=== PATIENT | male | born 1955 | race Hispanic/Latino ===

== ENCOUNTER 2020-10-07 10:02 | Inpatient (IN) | payer MEDICARE ==
[2020-10-07] MEDS ORDERED: UDCUP PO PRN (13:00)
[2020-10-07] MEDS ORDERED: ACETAMINOPHEN 650 MG/20.3 ML PO PRN (13:00)
[2020-10-07] MEDS ORDERED: Ventolin HFA Inhaler 60 PUFF INHALER INH PRN (13:00)
[2020-10-07] MEDS: Ventolin HFA Inhaler 60 PUFF INHALER INH SCH ×3 (14:44→22:06)
[2020-10-07] MEDS: Arformoterol 15 MCG/2 ML NEB NEB SCH (18:21)
[2020-10-07] MEDS: Budesonide 0.5 MG/2 ML NEB NEB SCH (18:21)
[2020-10-07] MEDS ORDERED: Dextrose 50% Abboject 50 ML SYRINGE IVP PRN (19:15)
[2020-10-07] MEDS ORDERED: Dextrose 5% in Water 1,000 ML IV PRN (19:15)
[2020-10-07] MEDS ORDERED: HumaLOG 300 UNITS/3 ML VIAL SC PRN (19:15)
[2020-10-07] MEDS: Cholecalciferol 1,000 UNITS (25 MCG) TAB PO SCH (22:05)
[2020-10-07] MEDS: Apixaban 2.5 MG TAB PO SCH (22:06)
[2020-10-08] MEDS: Ventolin HFA Inhaler 60 PUFF INHALER INH SCH ×6 (03:10→22:27)
[2020-10-08 05:08] LABS: #Basophils 0.2 thou/uL (0.0-0.2); #Eosinphils 0.2 thou/uL (0.0-0.7); #Monocytes 0.8 thou/uL (0.11-0.59); #Neutrophils 12.5 thou/uL (1.40-6.50); %Basophils 1.1 % (0.0-1.0); %Eosinophils 1.5 % (0.0-10.0); %Lymphocytes 12.9 % (21.0-51.0); %Monocytes 5.3 % (0.0-10.0); %Neutrophils 79.3 % (42.0-75.0); Hemoglobin 13.2 g/dL (14.0-18.0); Mean Corpuscular HGB CONC 32.1 g/dL (32.0-36.0); Mean Corpuscular Volume 96.6 fL (78.0-98.0); Mean Platelet Volume 8.5 fL (7.4-10.4); Platelet Count 370 thou/uL (130-400); RBC Distribution Width 13.8 % (11.5-14.5); Red Blood Cell (RBC) Count 4.27 mill/uL (4.70-6.10); White Blood Cell (WBC) Count 15.8 thou/uL (4.8-10.8)
[2020-10-08 05:21] LABS: Anion Gap 18 mmol/L (10-20); BUN (Urea Nitrogen) 42 mg/dL (8.4-25.7); Calc. Creatinine Clearance 106 mL/min (70-130); Calcium 8.8 mg/dL (7.8-10.44); Carbon Dioxide 26 mmol/L (23-31); Chloride 97 mmol/L (98-107); Glucose 167 mg/dL (80-115); Potassium 4.2 mmol/L (3.5-5.1); Sodium 137 mmol/L (136-145)
[2020-10-08] MEDS: Budesonide 0.5 MG/2 ML NEB NEB SCH ×2 (05:30→18:43)
[2020-10-08] MEDS: Arformoterol 15 MCG/2 ML NEB NEB SCH ×2 (05:30→18:43)
[2020-10-08] MEDS: HumaLOG 300 UNITS/3 ML VIAL SC PRN ×2 (05:53→16:56)
[2020-10-08] MEDS: Dexamethasone 1 MG TAB PO SCH (09:59)
[2020-10-08] MEDS: Saccharomyces boulardii 250 MG CAP PO SCH (09:59)
[2020-10-08] MEDS: Cyanocobalamin (Vitamin B-12) 1,000 MCG TAB PO SCH (10:00)
[2020-10-08] MEDS: Zinc Sulfate 220 MG CAP PO SCH (10:00)
[2020-10-08] MEDS: Ascorbic Acid 500 mg Chewable Tablet PO SCH (10:00)
[2020-10-08] MEDS: Furosemide 40 MG TAB PO SCH (10:00)
[2020-10-08] MEDS: Apixaban 2.5 MG TAB PO SCH ×2 (10:00→20:45)
[2020-10-08] MEDS: Folic Acid 1 MG TAB PO SCH (10:01)
--- NOTE | 2020-10-08 14:01 | PRG ---
DATE OF SERVICE: 10/08/2020 SUBJECTIVE: Mr. Golden is up in bed and is trying to eat some food. Speech therapy evaluation is pending. He is also tolerating PEG tube feeds. His spouse is in the room. No questions or concerns. OBJECTIVE: VITAL SIGNS: He is afebrile. Heart rate is 91, respirations 18, oxygen saturation 97% on nasal cannula, blood pressure 124/75. CARDIOVASCULAR SYSTEM: S1-S2 plus. RESPIRATORY SYSTEM: Normal vesicular breath sounds with occasional rhonchi. ABDOMEN: Soft, nontender. Bowel sounds heard in all quadrants. EXTREMITIES: Without cyanosis or clubbing. PEG tube site is healthy. CENTRAL NERVOUS SYSTEM: Generalized weakness. LABORATORY VALUES: Show a white count of 15.8, H and H are 13.2 and 41.2. Sodium 137, potassium 4.2, BUN and creatinine are 42 . Blood sugars are 151, 123, 129. IMPRESSION: 1. Diabetes mellitus type 2. 2. Hypertension. 3. Recent COVID-19 infection. 4. Acute hypoxemic respiratory failure. 5. Anorexia, requiring PEG tube placement. 6. 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 7. History of peripheral vascular disease documented in old records. PLAN: 1. Continue current medication. 2. Nutritional support. 3. PT/OT and ST eval. 4. DVT prophylaxis with Eliquis. 5. Decubitus precaution. 6. Stress ulcer prophylaxis. 7. He is supposed to be under Dr. Polanco and Dr. Polanco will assume care at 9 p.m. [facility]. Job ID: [id number]
[2020-10-08] MEDS: Cholecalciferol 1,000 UNITS (25 MCG) TAB PO SCH (20:45)
[2020-10-09] MEDS: Ventolin HFA Inhaler 60 PUFF INHALER INH SCH ×6 (02:22→23:14)
--- NOTE | 2020-10-09 05:18 | HP ---
CHIEF COMPLAINTS: Recent COVID pneumonia and hypoxemic respiratory failure for therapy. BRIEF HISTORY: This is a pleasant 65-year-old male, who was admitted to the hospital on August 31 with hypoxemia and hypertension. He was diagnosed with respiratory failure and sepsis secondary to COVID-[address] scan of his chest was consistent with COVID pneumonia. He was started on high-flow oxygen and had to be transitioned to intubation and mechanical ventilation. He received empiric antibiotics, steroids, and remdesivir. He also was noted to have a UTI, which needed to be treated. Because of severe malnutrition and poor p.o. intake, a PEG tube was placed. He is being transferred here for nutritional support as well as therapy. The patient is up in bed and denies any concerns. He is very weak. His spouse is in the room. PAST MEDICAL HISTORY: 1. Diabetes mellitus type 2, recently diagnosed in May. 2. Hypertension. 3. Acute hypoxemic respiratory failure. 4. Recent COVID-19 pneumonia. 5. Recent UTI, which has resolved. 6. Poor p.o. intake, requiring PEG tube placement. 7. Peripheral vascular disease. PAST SURGICAL HISTORY: 1. PEG tube placement. 2. Right knee surgery. MEDICATIONS: He has been transferred here on the following medications; 1. Tylenol 650 p.o. q.4h p.r.n. 2. Ventolin inhaler two puffs q.2 p.r.n. 3. Eliquis 2.5 mg b.i.d. 4. Brovana 15 mcg via nebulizer b.i.d. 5. Vitamin C 1000 mg daily. 6. Pulmicort 0.5 mg nebs b.i.d. 7. Vitamin D3 of 5000 units daily. 8. Vitamin B12 of 1000 mcg daily. 9. Decadron 1.5 mg daily, this is to be tapered by 0.5 mg every 5 days. 10. Folic acid 1 mg daily. 11. Lasix 40 mg daily. 12. Pantoprazole 40 mg daily. 13. Florastor 250 daily. 14. Zinc sulfate 220 daily. ALLERGIES: PENICILLIN AND FOOD, IT IS MUSHROOMS AND BARBECUE SAUCE. FAMILY HISTORY: Positive for diabetes and hypertension. PSYCHOSOCIAL HISTORY: Denies any tobacco, alcohol, or recreational drug abuse. REVIEW OF SYSTEMS: CARDIOVASCULAR SYSTEM: Denies any chest pain. Improving shortness of breath. Denies any PND, orthopnea, or pedal edema. RESPIRATORY SYSTEM: Occasional cough. Denies any expectoration. Denies any hemoptysis or pleuritic-type chest pain. GASTROINTESTINAL SYSTEM: Anorexia is positive. Denies any nausea or vomiting. Denies any hematemesis, melena, or hematochezia. GENITOURINARY SYSTEM: Denies any frequency, urgency, dysuria, or hematuria. CENTRAL NERVOUS SYSTEM: Denies any focal numbness, weakness, or fainting spells. HEENT: Denies any changes with speech, vision, hearing, or swallowing. EXTREMITIES: Occasional joint pain. SKIN: Denies any rash. PHYSICAL EXAMINATION: GENERAL: This is a pleasant 65-year-old male, who is resting in bed and is very frail and weak. He is not in any distress. He responds appropriately to questions. His spouse is in the room. VITAL SIGNS: He is afebrile, heart rate 92, respirations 19, oxygen saturation 99% on 2 L, blood pressure 133/78. HEENT: Normocephalic and atraumatic. Pupils are equally reacting to light and accommodation. No JVD, thyromegaly, cervical adenopathy, or throat exudates. No carotid bruits. CARDIOVASCULAR SYSTEM: S1-S2 plus. Rate and rhythm regular. RESPIRATORY SYSTEM: Normal vesicular breath sounds with occasional rhonchi. Decreased air entry in the bases. ABDOMEN: Soft, nontender. Bowel sounds heard in all quadrants. PEG tube site is healthy. EXTREMITIES: Without cyanosis or clubbing. CENTRAL NERVOUS SYSTEM: Awake and responsive. Cranial nerves 2 through 12 intact. Significant deconditioning. LABORATORY VALUES: Pending. IMPRESSION: 1. Recent COVID-19 infection. 2. Diabetes mellitus type 2. 3. Hypertension. 4. Acute hypoxemic respiratory failure. 5. 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 6. Resolved urinary tract infection. PLAN: 1. Continue discharge medications from previous hospitalization. 2. 1800 calorie heart healthy diet with aspiration precautions. 3. Glucerna tube feed one can every 4 hours starting at 8 p.m. 4. DVT prophylaxis with Eliquis. 5. Decubitus precautions. 6. Stress ulcer prophylaxis. 7. Physical therapy, PT and OT eval and treat. 8. CBC and CMP in the morning. 9. Titrate oxygen as tolerated. 10. Discussed with the patient and spouse in detail. All questions answered. Job ID: [id number]
[2020-10-09] MEDS: Budesonide 0.5 MG/2 ML NEB NEB SCH ×2 (05:43→17:48)
[2020-10-09] MEDS: Arformoterol 15 MCG/2 ML NEB NEB SCH ×2 (05:43→17:47)
[2020-10-09] MEDS: HumaLOG 300 UNITS/3 ML VIAL SC PRN ×2 (05:51→17:13)
[2020-10-09] MEDS: Apixaban 2.5 MG TAB PO SCH ×2 (08:09→20:13)
[2020-10-09] MEDS: Ascorbic Acid 500 mg Chewable Tablet PO SCH (08:09)
[2020-10-09] MEDS: Furosemide 40 MG TAB PO SCH (08:09)
[2020-10-09] MEDS: Cyanocobalamin (Vitamin B-12) 1,000 MCG TAB PO SCH (08:09)
[2020-10-09] MEDS: Folic Acid 1 MG TAB PO SCH (08:10)
[2020-10-09] MEDS: Zinc Sulfate 220 MG CAP PO SCH (08:10)
[2020-10-09] MEDS: Dexamethasone 1 MG TAB PO SCH (08:10)
[2020-10-09] MEDS: Saccharomyces boulardii 250 MG CAP PO SCH (08:10)
[2020-10-09] MEDS ORDERED: Sodium Chloride 0.65% Nasal 44 ML BOT EA NARE PRN (13:01)
--- NOTE | 2020-10-09 13:36 | PRG ---
DATE OF SERVICE: 10/09/2020 SUBJECTIVE: The patient is doing well. He is sitting up in bed. PEG tube is in place with no acute findings. He is tolerating his PEG tube feeds well. He is taking these at night because at [facility], he was having decreased appetite when feedings were given during the day. Nursing staff noticed that he was using Q-Tips to clean out his nose and so that he could breathe better. We will start him on some saline spray q.i.d. p.r.n. for this and encourage him not to use Q-Tips in his nose. OBJECTIVE: VITAL SIGNS: Afebrile. Temperature 96.5, pulse 91, respirations 18, O2 sats 97 on 2 L nasal cannula, blood pressure 116/69. GENERAL: Well-appearing, well-developed, 65-year-old male lying in bed, in no acute distress. RESPIRATIONS: Clear to auscultation bilaterally. No wheezes or rhonchi. CARDIOVASCULAR: Regular rate and rhythm. No murmurs, gallops, or rubs. ABDOMEN: Soft, nontender to palpation. Bowel sounds positive in all 4 quadrants. EXTREMITIES: Generalized weakness. NEURO: Nonfocal exam. LABORATORY DATA: White count of 15.8, hemoglobin 13.2, hematocrit 41.2, platelets 370. The patient's CBG is ranging from 147 to 187. IMPRESSION: 1. Status post COVID infection requiring PT and OT services. 2. Diabetes type 2. 3. Hypertension. 4. Status post acute hypoxemic respiratory failure. 5. Anorexia requiring PEG tube placement, improving. The patient also with significant deconditioning. PLAN: 1. Plan is to start patient with saline nose spray to help clear out his nose and avoid using Q-Tips. 2. Speech therapy consult for swallowing and if he passes this, he can return to ad lobo diet. 3. Continue PEG feedings at night. 4. PT/OT. 5. DVT prophylaxis with Eliquis. 6. Decubitus precautions. 7. Stress ulcer prophylaxis. Job ID: [id number]
[2020-10-09] MEDS: Cholecalciferol 1,000 UNITS (25 MCG) TAB PO SCH (20:13)
[2020-10-10] MEDS: Ventolin HFA Inhaler 60 PUFF INHALER INH SCH ×6 (02:35→23:08)
[2020-10-10] MEDS: Budesonide 0.5 MG/2 ML NEB NEB SCH ×2 (05:48→18:19)
[2020-10-10] MEDS: Arformoterol 15 MCG/2 ML NEB NEB SCH ×2 (05:48→18:18)
[2020-10-10] MEDS: Cyanocobalamin (Vitamin B-12) 1,000 MCG TAB PO SCH (08:18)
[2020-10-10] MEDS: Apixaban 2.5 MG TAB PO SCH ×2 (08:18→20:25)
[2020-10-10] MEDS: Furosemide 40 MG TAB PO SCH (08:18)
[2020-10-10] MEDS: Dexamethasone 1 MG TAB PO SCH (08:18)
[2020-10-10] MEDS: Ascorbic Acid 500 mg Chewable Tablet PO SCH (08:18)
[2020-10-10] MEDS: Zinc Sulfate 220 MG CAP PO SCH (08:19)
[2020-10-10] MEDS: Saccharomyces boulardii 250 MG CAP PO SCH (08:19)
[2020-10-10] MEDS: Folic Acid 1 MG TAB PO SCH (08:19)
[2020-10-10] MEDS: HumaLOG 300 UNITS/3 ML VIAL SC PRN (11:35)
[2020-10-10] MEDS: Cholecalciferol 1,000 UNITS (25 MCG) TAB PO SCH (20:25)
[2020-10-11] MEDS: Ventolin HFA Inhaler 60 PUFF INHALER INH SCH ×6 (03:28→23:17)
[2020-10-11 05:41] LABS: #Basophils 0.2 thou/uL (0.0-0.2); #Eosinphils 0.2 thou/uL (0.0-0.7); #Lymphocytes 2.4 thou/uL (1.20-3.40); #Monocytes 0.8 thou/uL (0.11-0.59); #Neutrophils 11.8 thou/uL (1.40-6.50); %Basophils 1.2 % (0.0-1.0); %Eosinophils 1.4 % (0.0-10.0); %Lymphocytes 15.5 % (21.0-51.0); %Neutrophils 76.9 % (42.0-75.0); Hemoglobin 13.1 g/dL (14.0-18.0); Mean Corpuscular HGB CONC 31.8 g/dL (32.0-36.0); Mean Corpuscular Hemoglobin 31.2 pg (27.0-31.0); Mean Corpuscular Volume 97.9 fL (78.0-98.0); Mean Platelet Volume 8.5 fL (7.4-10.4); Platelet Count 341 thou/uL (130-400); RBC Distribution Width 14.1 % (11.5-14.5); Red Blood Cell (RBC) Count 4.22 mill/uL (4.70-6.10); White Blood Cell (WBC) Count 15.3 thou/uL (4.8-10.8)
[2020-10-11 05:57] LABS: ALT (SGPT) 38 U/L (8-55); AST (SGOT) 29 U/L (5-34); Albumin 3.2 g/dL (3.4-4.8); Alkaline Phosphatase 174 U/L (40-110); Anion Gap 17 mmol/L (10-20); BUN (Urea Nitrogen) 39 mg/dL (8.4-25.7); Calc. Creatinine Clearance 105 mL/min (70-130); Calcium 9.1 mg/dL (7.8-10.44); Carbon Dioxide 27 mmol/L (23-31); Chloride 99 mmol/L (98-107); Globulin 4.4 g/dL (2.4-3.5); Glucose 173 mg/dL (80-115); Potassium 4.7 mmol/L (3.5-5.1); Protein, Total 7.6 g/dL (5.8-8.1); Sodium 138 mmol/L (136-145)
[2020-10-11 06:07] LABS: Bilirubin, Total 0.3 mg/dL (0.2-1.2)
[2020-10-11] MEDS: Arformoterol 15 MCG/2 ML NEB NEB SCH ×2 (06:14→18:43)
[2020-10-11] MEDS: Budesonide 0.5 MG/2 ML NEB NEB SCH ×2 (06:17→18:42)
[2020-10-11] MEDS: Apixaban 2.5 MG TAB PO SCH ×2 (08:08→20:07)
[2020-10-11] MEDS: Folic Acid 1 MG TAB PO SCH (08:08)
[2020-10-11] MEDS: Cyanocobalamin (Vitamin B-12) 1,000 MCG TAB PO SCH (08:08)
[2020-10-11] MEDS: Zinc Sulfate 220 MG CAP PO SCH (08:08)
[2020-10-11] MEDS: Dexamethasone 1 MG TAB PO SCH (08:08)
[2020-10-11] MEDS: Saccharomyces boulardii 250 MG CAP PO SCH (08:08)
[2020-10-11] MEDS: Ascorbic Acid 500 mg Chewable Tablet PO SCH (08:08)
[2020-10-11] MEDS: Furosemide 40 MG TAB PO SCH (08:09)
[2020-10-11] MEDS: HumaLOG 300 UNITS/3 ML VIAL SC PRN (17:35)
[2020-10-11] MEDS: Cholecalciferol 1,000 UNITS (25 MCG) TAB PO SCH (20:06)
[2020-10-11] MEDS: Sulfameth/Trimethoprim DS 800-160mg TAB PO SCH (20:07)
[2020-10-12] MEDS: Ventolin HFA Inhaler 60 PUFF INHALER INH SCH ×6 (02:52→22:23)
[2020-10-12] MEDS: Arformoterol 15 MCG/2 ML NEB NEB SCH ×2 (05:29→17:59)
[2020-10-12] MEDS: Budesonide 0.5 MG/2 ML NEB NEB SCH ×2 (05:29→17:59)
[2020-10-12] MEDS: Zinc Sulfate 220 MG CAP PO SCH (09:18)
[2020-10-12] MEDS: Saccharomyces boulardii 250 MG CAP PO SCH (09:19)
[2020-10-12] MEDS: Cyanocobalamin (Vitamin B-12) 1,000 MCG TAB PO SCH (09:20)
[2020-10-12] MEDS: Ascorbic Acid 500 mg Chewable Tablet PO SCH (09:20)
[2020-10-12] MEDS: Folic Acid 1 MG TAB PO SCH (09:20)
[2020-10-12] MEDS: Dexamethasone 1 MG TAB PO SCH (09:20)
[2020-10-12] MEDS: Sulfameth/Trimethoprim DS 800-160mg TAB PO SCH ×2 (09:20→20:19)
[2020-10-12] MEDS: Apixaban 2.5 MG TAB PO SCH ×2 (09:21→20:19)
[2020-10-12] MEDS: Furosemide 40 MG TAB PO SCH (09:21)
[2020-10-12] MEDS: HumaLOG 300 UNITS/3 ML VIAL SC PRN ×2 (12:36→17:20)
[2020-10-12] MEDS: Cholecalciferol 1,000 UNITS (25 MCG) TAB PO SCH (20:19)
[2020-10-13] MEDS: Ventolin HFA Inhaler 60 PUFF INHALER INH SCH ×6 (03:11→21:41)
[2020-10-13] MEDS: Arformoterol 15 MCG/2 ML NEB NEB SCH ×2 (06:04→18:09)
[2020-10-13] MEDS: Budesonide 0.5 MG/2 ML NEB NEB SCH ×2 (06:04→18:10)
[2020-10-13] MEDS: Furosemide 40 MG TAB PO SCH (08:34)
[2020-10-13] MEDS: Cyanocobalamin (Vitamin B-12) 1,000 MCG TAB PO SCH (08:34)
[2020-10-13] MEDS: Ascorbic Acid 500 mg Chewable Tablet PO SCH (08:34)
[2020-10-13] MEDS: Saccharomyces boulardii 250 MG CAP PO SCH (08:34)
[2020-10-13] MEDS: Zinc Sulfate 220 MG CAP PO SCH (08:34)
[2020-10-13] MEDS: Sulfameth/Trimethoprim DS 800-160mg TAB PO SCH ×2 (08:35→21:41)
[2020-10-13] MEDS: Folic Acid 1 MG TAB PO SCH (08:35)
[2020-10-13] MEDS: Dexamethasone 1 MG TAB PO SCH (08:35)
[2020-10-13] MEDS: Apixaban 2.5 MG TAB PO SCH ×2 (08:35→21:41)
[2020-10-13] MEDS ORDERED: Dexamethasone 1 MG TAB PO SCH (09:00)
[2020-10-13] MEDS: HumaLOG 300 UNITS/3 ML VIAL SC PRN (13:13)
--- NOTE | 2020-10-13 18:12 | PRG ---
DATE OF SERVICE: 10/12/2020 SUBJECTIVE: The patient is a 65-year-old male, here for PT and OT services as well as management of his type 2. The patient is doing well overall. However, he is reporting some vertigo with PT. The patient has advanced well with his diet and is using his PEG tube overnight only. We will continue to monitor his feeds and progress as tolerated along with consult speech therapy. REVIEW OF SYSTEMS: Reports dizziness when standing with vertigo symptoms when he stands up with physical therapy. Otherwise, denies any fevers, chills, cough, congestion, shortness of breath, palpitations, chest pain, nausea, vomiting, diarrhea. OBJECTIVE: VITAL SIGNS: Temperature 96.8, pulse 95, respirations 18, O2 sats 92% to 97% on room air, blood pressure 128/65. GENERAL: Well-appearing well-developed 65-year-old male, lying in bed, no acute distress. HEART: Regular rate and rhythm. No murmurs, gallops, rubs. RESPIRATIONS: Clear to auscultation bilaterally. No wheezes or rhonchi. ABDOMEN: Soft, nontender to palpation. Bowel sounds positive in all four quadrants. PEG tube in place, clean, dry, and intact. EXTREMITIES: Generalized weakness, improving. ASSESSMENT: 1. Status post COVID infection requiring PT and OT services. 2. Type 2 diabetes. 3. Hypertension. 4. Status post acute hypoxemic respiratory failure, no acute issues in this hospitalization. 5. Anorexia requiring PEG tube placement, improving. 6. Weakness and deconditioning. PLAN: 1. Continue patient's saline nose spray. 2. Continue to advance diet per Speech Therapy recommendations. 3. Continue PEG feeds at night. 4. Continue PT and OT services. 5. DVT prophylaxis, on Eliquis. 6. Decubitus precautions. 7. Stress ulcer prophylaxis. Job ID: [id number] [facility]
[2020-10-13] MEDS: Cholecalciferol 1,000 UNITS (25 MCG) TAB PO SCH (21:40)
[2020-10-14] MEDS: Ventolin HFA Inhaler 60 PUFF INHALER INH SCH ×6 (02:51→21:49)
[2020-10-14] MEDS: Budesonide 0.5 MG/2 ML NEB NEB SCH ×2 (05:41→18:19)
[2020-10-14] MEDS: Arformoterol 15 MCG/2 ML NEB NEB SCH ×2 (05:43→18:18)
[2020-10-14] MEDS: Meclizine HCl 25 MG TAB PO PRN (08:17)
[2020-10-14] MEDS: Cyanocobalamin (Vitamin B-12) 1,000 MCG TAB PO SCH (08:18)
[2020-10-14] MEDS: Ascorbic Acid 500 mg Chewable Tablet PO SCH (08:18)
[2020-10-14] MEDS: Apixaban 2.5 MG TAB PO SCH ×2 (08:18→20:50)
[2020-10-14] MEDS: Furosemide 40 MG TAB PO SCH (08:18)
[2020-10-14] MEDS: Dexamethasone 1 MG TAB PO SCH (08:19)
[2020-10-14] MEDS: Zinc Sulfate 220 MG CAP PO SCH (08:20)
[2020-10-14] MEDS: Saccharomyces boulardii 250 MG CAP PO SCH (08:20)
[2020-10-14] MEDS: Sulfameth/Trimethoprim DS 800-160mg TAB PO SCH ×2 (08:20→20:51)
[2020-10-14] MEDS: Folic Acid 1 MG TAB PO SCH (08:20)
[2020-10-14] MEDS: Cholecalciferol 1,000 UNITS (25 MCG) TAB PO SCH (20:50)
[2020-10-15] MEDS: Ventolin HFA Inhaler 60 PUFF INHALER INH SCH ×6 (02:24→21:01)
[2020-10-15] MEDS: Budesonide 0.5 MG/2 ML NEB NEB SCH ×2 (05:36→18:12)
[2020-10-15] MEDS: Arformoterol 15 MCG/2 ML NEB NEB SCH ×2 (05:37→18:12)
--- NOTE | 2020-10-15 07:12 | PRG ---
DATE OF SERVICE: 10/14/[address] Boaz Polanco. SUBJECTIVE: The patient is a 65-year-old male, status post COVID infection with severe critical illness myopathy. He is improving daily and working with therapy with some problems with dizziness, improving recently. He is eating better and has been advanced with speech therapy, but is still requiring PEG tube overnight because of decreased intake. OBJECTIVE: GENERAL: The patient is alert, in no distress. Ready for more therapy. Eating his supper. LUNGS: Clear. CARDIAC: Showed regular rhythm. ABDOMEN: Soft and nontender. VITAL SIGNS: Show temperature 97.4, pulse 105, respirations 20, O2 sats 94% on room air, and blood pressure 140/79. LABORATORY DATA: Accu-Cheks 128 to 137. ASSESSMENT: 1. Resolved COVID-19 pneumonia. 2. Improving critical illness myopathy. 3. Poor oral intake, slowly improving with supplemental feeding at night, but tolerating diet. 4. Hypertension, controlled to goal. 5. Type 2 diabetes, controlled to goal. PLAN: 1. Continue PT/OT. 2. Continue to stress oral intake and monitor with speech. 3. Continue PEG feeding at night. 4. Continue Accu-Cheks to monitor and titrate and control diabetes. 5. Review labs and therapy notes. Job ID: [id number]
[2020-10-15] MEDS: Ascorbic Acid 500 mg Chewable Tablet PO SCH (09:21)
[2020-10-15] MEDS: Dexamethasone 1 MG TAB PO SCH (09:21)
[2020-10-15] MEDS: Cyanocobalamin (Vitamin B-12) 1,000 MCG TAB PO SCH (09:21)
[2020-10-15] MEDS: Folic Acid 1 MG TAB PO SCH (09:21)
[2020-10-15] MEDS: Apixaban 2.5 MG TAB PO SCH ×2 (09:21→21:01)
[2020-10-15] MEDS: Zinc Sulfate 220 MG CAP PO SCH (09:22)
[2020-10-15] MEDS: Saccharomyces boulardii 250 MG CAP PO SCH (09:22)
[2020-10-15] MEDS: Sulfameth/Trimethoprim DS 800-160mg TAB PO SCH ×2 (09:22→21:01)
[2020-10-15] MEDS: Meclizine HCl 25 MG TAB PO PRN (09:25)
[2020-10-15] MEDS: Cholecalciferol 1,000 UNITS (25 MCG) TAB PO SCH (21:01)
[2020-10-16] MEDS: Ventolin HFA Inhaler 60 PUFF INHALER INH SCH ×6 (02:25→21:17)
[2020-10-16] MEDS: Budesonide 0.5 MG/2 ML NEB NEB SCH ×2 (06:10→17:35)
[2020-10-16] MEDS: Arformoterol 15 MCG/2 ML NEB NEB SCH ×2 (06:12→17:36)
[2020-10-16] MEDS: Folic Acid 1 MG TAB PO SCH (09:52)
[2020-10-16] MEDS: Zinc Sulfate 220 MG CAP PO SCH (09:53)
[2020-10-16] MEDS: Dexamethasone 1 MG TAB PO SCH (09:53)
[2020-10-16] MEDS: Cyanocobalamin (Vitamin B-12) 1,000 MCG TAB PO SCH (09:53)
[2020-10-16] MEDS: Sulfameth/Trimethoprim DS 800-160mg TAB PO SCH ×2 (09:53→21:16)
[2020-10-16] MEDS: Ascorbic Acid 500 mg Chewable Tablet PO SCH (09:53)
[2020-10-16] MEDS: Saccharomyces boulardii 250 MG CAP PO SCH (09:53)
[2020-10-16] MEDS: Apixaban 2.5 MG TAB PO SCH ×2 (09:53→21:16)
--- NOTE | 2020-10-16 13:28 | PRG ---
DATE OF SERVICE: 10/16/2020 SUBJECTIVE: The patient is a 65-year-old male here for PT and OT services following COVID infection. The patient still has PEG tube in place, but he is eating and drinking well. He is drinking Januvia for supplementation as well. Continue to monitor PEG tube. REVIEW OF SYSTEMS: Denies any fever, chills, cough, congestion, nausea, vomiting, or diarrhea. The patient states that his dizziness has improved. OBJECTIVE: VITAL SIGNS: Temperature 96.5, pulse 86 to 90, respirations 18 to 20, O2 saturations 96% to 97% on room air, blood pressure 123/65 to 139/90. GENERAL: Well-appearing 65-year-old male, lying in bed, in no acute distress. RESPIRATIONS: Clear to auscultation bilaterally. CARDIOVASCULAR: Regular rate and rhythm. No murmurs, gallops, or rubs. ABDOMEN: Soft, nontender to palpation. Bowel sounds positive in all four quadrants. A PEG tube in place, clean, dry, and intact. There is a sacral pressure ulcer seen that has some minimal tracking. Wound Care is following this. ASSESSMENT: 1. Status post COVID infection requiring PT and OT services. 2. Type 2 diabetes. 3. Hypertension. 4. Status post acute hypoxemic respiratory failure, no acute issues in the hospitalization. 5. Anorexia requiring percutaneous endoscopic gastrostomy tube placement, which is improving. 6. Weakness and deconditioning. PLAN: 1. Continue the patient's saline nose spray. 2. Continue to advance diet per Speech Therapy recommendations. 3. Continue PEG tube feeds at night and switch to p.r.n. feeds. 4. Continue PT and OT services. Job ID: [id number]
[2020-10-16] MEDS: HumaLOG 300 UNITS/3 ML VIAL SC PRN (17:21)
[2020-10-16] MEDS: Cholecalciferol 1,000 UNITS (25 MCG) TAB PO SCH (21:16)
[2020-10-17] MEDS: Ventolin HFA Inhaler 60 PUFF INHALER INH SCH ×6 (02:16→21:13)
[2020-10-17 05:34] LABS: Hemoglobin 13.2 g/dL (14.0-18.0); Mean Corpuscular HGB CONC 32.3 g/dL (32.0-36.0); Mean Corpuscular Hemoglobin 31.1 pg (27.0-31.0); Mean Corpuscular Volume 96.2 fL (78.0-98.0); Mean Platelet Volume 9.1 fL (7.4-10.4); Platelet Count 297 thou/uL (130-400); RBC Distribution Width 13.8 % (11.5-14.5); Red Blood Cell (RBC) Count 4.25 mill/uL (4.70-6.10)
[2020-10-17 05:35] LABS: #Basophils 0.2 thou/uL (0.0-0.2); #Eosinphils 0.4 thou/uL (0.0-0.7); #Lymphocytes 1.6 thou/uL (1.20-3.40); #Monocytes 0.8 thou/uL (0.11-0.59); #Neutrophils 8.1 thou/uL (1.40-6.50); %Basophils 1.9 % (0.0-1.0); %Eosinophils 3.7 % (0.0-10.0); %Lymphocytes 14.4 % (21.0-51.0); %Monocytes 6.8 % (0.0-10.0); %Neutrophils 73.2 % (42.0-75.0); Manual Diff?? NO
[2020-10-17 05:38] LABS: Anion Gap 15 mmol/L (10-20); BUN (Urea Nitrogen) 38 mg/dL (8.4-25.7); Calc. Creatinine Clearance 107 mL/min (70-130); Calcium 9.1 mg/dL (7.8-10.44); Carbon Dioxide 21 mmol/L (23-31); Chloride 102 mmol/L (98-107); Glucose 99 mg/dL (80-115); Potassium 4.2 mmol/L (3.5-5.1); Sodium 134 mmol/L (136-145)
[2020-10-17] MEDS: Budesonide 0.5 MG/2 ML NEB NEB SCH ×2 (06:12→18:36)
[2020-10-17] MEDS: Arformoterol 15 MCG/2 ML NEB NEB SCH ×2 (06:34→18:34)
[2020-10-17] MEDS: Cyanocobalamin (Vitamin B-12) 1,000 MCG TAB PO SCH (09:09)
[2020-10-17] MEDS: Folic Acid 1 MG TAB PO SCH (09:09)
[2020-10-17] MEDS: Zinc Sulfate 220 MG CAP PO SCH (09:09)
[2020-10-17] MEDS: Ascorbic Acid 500 mg Chewable Tablet PO SCH (09:17)
[2020-10-17] MEDS: Sulfameth/Trimethoprim DS 800-160mg TAB PO SCH ×2 (09:17→21:13)
[2020-10-17] MEDS: Saccharomyces boulardii 250 MG CAP PO SCH (09:19)
[2020-10-17] MEDS: Dexamethasone 1 MG TAB PO SCH (09:20)
[2020-10-17] MEDS: Apixaban 2.5 MG TAB PO SCH ×2 (09:21→21:12)
[2020-10-17] MEDS: Meclizine HCl 25 MG TAB PO PRN (09:29)
[2020-10-17] MEDS: Cholecalciferol 1,000 UNITS (25 MCG) TAB PO SCH (21:13)
[2020-10-18] MEDS: Ventolin HFA Inhaler 60 PUFF INHALER INH SCH ×6 (00:55→21:39)
[2020-10-18] MEDS: Ascorbic Acid 500 mg Chewable Tablet PO SCH (08:33)
[2020-10-18] MEDS: Apixaban 2.5 MG TAB PO SCH ×2 (08:33→21:39)
[2020-10-18] MEDS: Saccharomyces boulardii 250 MG CAP PO SCH (08:34)
[2020-10-18] MEDS: Folic Acid 1 MG TAB PO SCH (08:34)
[2020-10-18] MEDS: Cyanocobalamin (Vitamin B-12) 1,000 MCG TAB PO SCH (08:34)
[2020-10-18] MEDS: Dexamethasone 1 MG TAB PO SCH (08:34)
[2020-10-18] MEDS: Zinc Sulfate 220 MG CAP PO SCH (08:35)
[2020-10-18] MEDS: Sulfameth/Trimethoprim DS 800-160mg TAB PO SCH (08:35)
[2020-10-18] MEDS: Meclizine HCl 25 MG TAB PO PRN (08:35)
[2020-10-18] MEDS: Arformoterol 15 MCG/2 ML NEB NEB SCH ×2 (17:16→18:27)
[2020-10-18] MEDS: Budesonide 0.5 MG/2 ML NEB NEB SCH ×2 (17:16→18:34)
[2020-10-18] MEDS: Cholecalciferol 1,000 UNITS (25 MCG) TAB PO SCH (21:39)
[2020-10-18] MEDS: Acetaminophen 325 MG TAB PO PRN (22:02)
[2020-10-19] MEDS: Ventolin HFA Inhaler 60 PUFF INHALER INH SCH ×6 (04:00→21:25)
[2020-10-19] MEDS: Budesonide 0.5 MG/2 ML NEB NEB SCH ×2 (05:51→18:27)
[2020-10-19] MEDS: Arformoterol 15 MCG/2 ML NEB NEB SCH ×2 (05:52→18:27)
[2020-10-19] MEDS: Apixaban 2.5 MG TAB PO SCH ×2 (08:28→21:24)
[2020-10-19] MEDS: Dexamethasone 1 MG TAB PO SCH (08:29)
[2020-10-19] MEDS: Folic Acid 1 MG TAB PO SCH (08:29)
[2020-10-19] MEDS: Ascorbic Acid 500 mg Chewable Tablet PO SCH (08:29)
[2020-10-19] MEDS: Cyanocobalamin (Vitamin B-12) 1,000 MCG TAB PO SCH (08:29)
[2020-10-19] MEDS: Zinc Sulfate 220 MG CAP PO SCH (08:30)
[2020-10-19] MEDS: Saccharomyces boulardii 250 MG CAP PO SCH (08:30)
[2020-10-19] MEDS: Meclizine HCl 25 MG TAB PO PRN (08:30)
[2020-10-19] MEDS: Acetaminophen 325 MG TAB PO PRN (11:21)
[2020-10-19] MEDS: traMADol HCl 50 MG TAB PO PRN (14:47)
[2020-10-19] MEDS: Bisacodyl 10 MG SUPP PR PRN (14:48)
--- NOTE | 2020-10-19 15:45 | PRG ---
DATE OF SERVICE: 10/19/2020 SUBJECTIVE: The patient today is complaining of constipation. He feels like he is having pressure near his rectum and needs to have a bowel movement, but no stool is being reduced. The patient does have a wound VAC in place and there are no issues with that. The patient is also frustrated overall with the current situation and is feeling a little bit down about what is happening to him right now. No true suicidal ideation or homicidal ideation. REVIEW OF SYSTEMS: Denies any fever, chills, cough, congestion, palpitations, or chest pain. Does report constipation. OBJECTIVE: VITAL SIGNS: Temperature 97.0, pulse 83, respirations 18, O2 sats 93% on room air, blood pressure ranging 138/81 to 144/83. GENERAL: Well-appearing patient, lying in bed on his side with wound VAC in place. The patient does appear to be frustrated. HEART: Regular rate and rhythm. No murmurs, gallops, or rubs. RESPIRATIONS: Clear to auscultation bilaterally. No wheezes or rhonchi. ABDOMEN: Soft, nontender to palpation. Bowel sounds positive in all 4 quadrants. Wound site clean, dry, intact with wound VAC in place. ASSESSMENT: 1. Weakness, status post COVID infection requiring PT and OT services. 2. Type 2 diabetes. 3. Hypertension. 4. Status post hypoxemic respiratory failure. 5. Anorexia requiring PEG tube. 6. Weakness and deconditioning. PLAN: 1. Continue PT and OT services. 2. Started dulcolax suppository p.r.n. daily for constipation. 3. Continue antihypertensives. 4. Continue PEG tube feeds p.r.n. 5. We will start the patient on 25 mg Zoloft for depression and anxiety. 6. We will start tramadol 50 for pain as well. Job ID: [id number]
--- NOTE | 2020-10-19 16:27 | RAD ---
KUB: 10/19/2020 COMPARISON: None HISTORY: Abdominal pain FINDINGS: Supine imaging is provided, limiting assessment for small bowel obstruction and free intrap eritoneal air. The rectum contains stool and is mildly expanded. There is a gastrostomy tube overlying the left upper quadrant. There is multilevel degenerative change involving the lumbar spine with prominent right lateral osteophyte at L2-3. IMPRESSION: KUB as detailed above.
[2020-10-19] MEDS: Milk Of Magnesia 30 ML UDCUP PO PRN (16:30)
[2020-10-19] MEDS: Cholecalciferol 1,000 UNITS (25 MCG) TAB PO SCH (21:24)
[2020-10-20] MEDS: Ventolin HFA Inhaler 60 PUFF INHALER INH SCH ×6 (01:35→21:39)
[2020-10-20] MEDS: Arformoterol 15 MCG/2 ML NEB NEB SCH ×2 (05:20→18:23)
[2020-10-20] MEDS: Budesonide 0.5 MG/2 ML NEB NEB SCH ×2 (05:43→18:21)
[2020-10-20 05:52] LABS: #Basophils 0.2 thou/uL (0.0-0.2); #Eosinphils 0.7 thou/uL (0.0-0.7); #Lymphocytes 1.4 thou/uL (1.20-3.40); #Neutrophils 9.8 thou/uL (1.40-6.50); %Basophils 1.3 % (0.0-1.0); %Eosinophils 5.2 % (0.0-10.0); %Lymphocytes 10.5 % (21.0-51.0); %Monocytes 7.5 % (0.0-10.0); %Neutrophils 75.5 % (42.0-75.0); Hemoglobin 12.5 g/dL (14.0-18.0); Mean Corpuscular Hemoglobin 30.8 pg (27.0-31.0); Mean Corpuscular Volume 96.3 fL (78.0-98.0); Mean Platelet Volume 9.8 fL (7.4-10.4); Platelet Count 263 thou/uL (130-400); RBC Distribution Width 13.9 % (11.5-14.5); Red Blood Cell (RBC) Count 4.05 mill/uL (4.70-6.10)
[2020-10-20 06:03] LABS: Anion Gap 15 mmol/L (10-20); BUN (Urea Nitrogen) 24 mg/dL (8.4-25.7); Calc. Creatinine Clearance 106 mL/min (70-130); Calcium 8.8 mg/dL (7.8-10.44); Carbon Dioxide 23 mmol/L (23-31); Chloride 101 mmol/L (98-107); Glucose 109 mg/dL (80-115); Potassium 4.7 mmol/L (3.5-5.1); Sodium 134 mmol/L (136-145)
[2020-10-20] MEDS: Saccharomyces boulardii 250 MG CAP PO SCH (08:29)
[2020-10-20] MEDS: Ascorbic Acid 500 mg Chewable Tablet PO SCH (08:29)
[2020-10-20] MEDS: Dexamethasone 1 MG TAB PO SCH (08:30)
[2020-10-20] MEDS: Meclizine HCl 25 MG TAB PO PRN (08:31)
[2020-10-20] MEDS: Zinc Sulfate 220 MG CAP PO SCH (08:31)
[2020-10-20] MEDS: Cyanocobalamin (Vitamin B-12) 1,000 MCG TAB PO SCH (08:31)
[2020-10-20] MEDS: Folic Acid 1 MG TAB PO SCH (08:31)
[2020-10-20] MEDS: Apixaban 2.5 MG TAB PO SCH ×2 (08:32→20:39)
[2020-10-20] MEDS: Polyethylene Glycol 3350 17 GM Packet PO PRN (08:34)
[2020-10-20] MEDS: Cholecalciferol 1,000 UNITS (25 MCG) TAB PO SCH (20:39)
[2020-10-21] MEDS: Ventolin HFA Inhaler 60 PUFF INHALER INH SCH ×6 (01:35→21:13)
[2020-10-21] MEDS: Arformoterol 15 MCG/2 ML NEB NEB SCH ×2 (05:44→17:38)
[2020-10-21] MEDS: Budesonide 0.5 MG/2 ML NEB NEB SCH ×2 (05:52→18:12)
--- NOTE | 2020-10-21 09:43 | PRG ---
DATE OF SERVICE: 10/21/2020 SUBJECTIVE: The patient is an ill-appearing 65-year-old male who is here for continued PT and OT services. The patient is doing better from last time I saw him. He did have a KUB which showed moderate stool. He has been given laxatives and milk of magnesia for this. Still has a PEG tube in place. We will start flushes for his PEG tube today. The patient denies any fever. REVIEW OF SYSTEMS: Denies any fever, chills, cough, congestion. He does report constipation. OBJECTIVE: VITAL SIGNS: Temperature 97.7, pulse 104, respirations 20, O2 saturations 94% on room air, BP 139/76. GENERAL: Ill-appearing 65-year-old male lying in bed with wound VAC in place. HEART: Regular rate and rhythm. No rubs, gallops or rubs. RESPIRATORY: Clear to auscultation bilaterally. No wheezes or rhonchi. GI: PEG tube in place. No signs of infection. Clean, dry, intact. The patient with wound VAC in place for sacral wound. No complications with this. EXTREMITIES: Generalized weakness. ASSESSMENT: 1. Weakness status post COVID infection. 2. Weakness requiring PT and OT services. 3. Type 2 diabetes. 4. Hypertension. 5. Status post hypoxic respiratory failure. 6. Anorexia requiring PEG tube, improving. 7. Weakness, deconditioning. PLAN: 1. Continue PT, OT services. 2. Start flushes per PEG tube. 3. Continue with Dulcolax suppository p.r.n. 4. Continue antihypertensives. 5. Continue PEG tube feeds p.r.n. 6. Continue Zoloft. 7. Continue tramadol. 8. DVT prophylaxis. 9. Stress ulcer prophylaxis. Job ID: [id number]
[2020-10-21] MEDS: traMADol HCl 50 MG TAB PO PRN (09:54)
[2020-10-21] MEDS: Saccharomyces boulardii 250 MG CAP PO SCH (09:56)
[2020-10-21] MEDS: Zinc Sulfate 220 MG CAP PO SCH (09:56)
[2020-10-21] MEDS: Dexamethasone 1 MG TAB PO SCH (09:56)
[2020-10-21] MEDS: Apixaban 2.5 MG TAB PO SCH ×2 (09:57→21:12)
[2020-10-21] MEDS: Ascorbic Acid 500 mg Chewable Tablet PO SCH (09:57)
[2020-10-21] MEDS: Cyanocobalamin (Vitamin B-12) 1,000 MCG TAB PO SCH (09:57)
[2020-10-21] MEDS: Folic Acid 1 MG TAB PO SCH (09:58)
[2020-10-21] MEDS: HumaLOG 300 UNITS/3 ML VIAL SC PRN (12:29)
[2020-10-21] MEDS: Cholecalciferol 1,000 UNITS (25 MCG) TAB PO SCH (21:11)
[2020-10-22] MEDS: Ventolin HFA Inhaler 60 PUFF INHALER INH SCH ×6 (02:28→21:36)
[2020-10-22] MEDS: Arformoterol 15 MCG/2 ML NEB NEB SCH ×2 (05:30→18:07)
[2020-10-22] MEDS: Budesonide 0.5 MG/2 ML NEB NEB SCH ×2 (05:36→18:20)
[2020-10-22] MEDS: Zinc Sulfate 220 MG CAP PO SCH (09:50)
[2020-10-22] MEDS: Saccharomyces boulardii 250 MG CAP PO SCH (09:50)
[2020-10-22] MEDS: Cyanocobalamin (Vitamin B-12) 1,000 MCG TAB PO SCH (09:50)
[2020-10-22] MEDS: Ascorbic Acid 500 mg Chewable Tablet PO SCH (09:50)
[2020-10-22] MEDS: Apixaban 2.5 MG TAB PO SCH ×2 (09:51→20:59)
[2020-10-22] MEDS: Dexamethasone 1 MG TAB PO SCH (09:51)
[2020-10-22] MEDS: Folic Acid 1 MG TAB PO SCH (09:51)
[2020-10-22] MEDS: HumaLOG 300 UNITS/3 ML VIAL SC PRN (12:03)
[2020-10-22] MEDS: traMADol HCl 50 MG TAB PO PRN (15:50)
[2020-10-22] MEDS: Cholecalciferol 1,000 UNITS (25 MCG) TAB PO SCH (20:59)
[2020-10-23] MEDS: Ventolin HFA Inhaler 60 PUFF INHALER INH SCH ×6 (02:17→22:57)
[2020-10-23] MEDS: Arformoterol 15 MCG/2 ML NEB NEB SCH ×2 (05:41→18:08)
[2020-10-23] MEDS: Budesonide 0.5 MG/2 ML NEB NEB SCH ×2 (05:55→18:08)
[2020-10-23] MEDS: Apixaban 2.5 MG TAB PO SCH ×2 (08:19→20:35)
[2020-10-23] MEDS: Cyanocobalamin (Vitamin B-12) 1,000 MCG TAB PO SCH (08:20)
[2020-10-23] MEDS: Folic Acid 1 MG TAB PO SCH (08:20)
[2020-10-23] MEDS: Ascorbic Acid 500 mg Chewable Tablet PO SCH (08:20)
[2020-10-23] MEDS: Saccharomyces boulardii 250 MG CAP PO SCH (08:20)
[2020-10-23] MEDS: Meclizine HCl 25 MG TAB PO PRN (08:21)
[2020-10-23] MEDS: Zinc Sulfate 220 MG CAP PO SCH (08:21)
[2020-10-23] MEDS: Acetaminophen 325 MG TAB PO PRN (13:46)
[2020-10-23] MEDS: traMADol HCl 50 MG TAB PO PRN (13:47)
[2020-10-23] MEDS: Cholecalciferol 1,000 UNITS (25 MCG) TAB PO SCH (20:35)
[2020-10-24] MEDS: Ventolin HFA Inhaler 60 PUFF INHALER INH SCH ×5 (01:37→17:38)
[2020-10-24] MEDS: Arformoterol 15 MCG/2 ML NEB NEB SCH ×2 (05:37→17:38)
[2020-10-24] MEDS: Budesonide 0.5 MG/2 ML NEB NEB SCH ×2 (05:44→17:38)
[2020-10-24 05:46] LABS: #Basophils 0.2 thou/uL (0.0-0.2); #Eosinphils 0.9 thou/uL (0.0-0.7); #Lymphocytes 1.4 thou/uL (1.20-3.40); #Monocytes 0.7 thou/uL (0.11-0.59); %Basophils 1.6 % (0.0-1.0); %Eosinophils 7.8 % (0.0-10.0); %Lymphocytes 12.7 % (21.0-51.0); %Monocytes 6.3 % (0.0-10.0); %Neutrophils 71.6 % (42.0-75.0); Hemoglobin 11.8 g/dL (14.0-18.0); Mean Corpuscular HGB CONC 31.7 g/dL (32.0-36.0); Mean Corpuscular Hemoglobin 30.9 pg (27.0-31.0); Mean Corpuscular Volume 97.5 fL (78.0-98.0); Mean Platelet Volume 7.8 fL (7.4-10.4); Platelet Count 267 thou/uL (130-400); RBC Distribution Width 14.2 % (11.5-14.5); Red Blood Cell (RBC) Count 3.82 mill/uL (4.70-6.10); White Blood Cell (WBC) Count 11.2 thou/uL (4.8-10.8)
[2020-10-24 05:59] LABS: ALT (SGPT) 70 U/L (8-55); AST (SGOT) 48 U/L (5-34); Alkaline Phosphatase 347 U/L (40-110); Anion Gap 14 mmol/L (10-20); BUN (Urea Nitrogen) 21 mg/dL (8.4-25.7); Bilirubin, Total 0.3 mg/dL (0.2-1.2); Calc. Creatinine Clearance 124 mL/min (70-130); Calcium 8.8 mg/dL (7.8-10.44); Carbon Dioxide 25 mmol/L (23-31); Chloride 103 mmol/L (98-107); Globulin 3.8 g/dL (2.4-3.5); Glucose 112 mg/dL (80-115); Potassium 4.5 mmol/L (3.5-5.1); Protein, Total 6.8 g/dL (5.8-8.1); Sodium 137 mmol/L (136-145)
[2020-10-24] MEDS: Saccharomyces boulardii 250 MG CAP PO SCH (08:07)
[2020-10-24] MEDS: Cyanocobalamin (Vitamin B-12) 1,000 MCG TAB PO SCH (08:07)
[2020-10-24] MEDS: Ascorbic Acid 500 mg Chewable Tablet PO SCH (08:07)
[2020-10-24] MEDS: Apixaban 2.5 MG TAB PO SCH ×2 (08:07→21:33)
[2020-10-24] MEDS: Folic Acid 1 MG TAB PO SCH (08:07)
[2020-10-24] MEDS: Zinc Sulfate 220 MG CAP PO SCH (08:08)
[2020-10-24] MEDS: Meclizine HCl 25 MG TAB PO PRN (08:08)
--- NOTE | 2020-10-24 20:17 | PDOC.BPN ---
- Brief Progress Note Encounter Date: 10/24/20 Encounter Time: 20:13 Patient doing well. Has more motivation since starting zoloft. Has been working well with therapy. Review of Systems: denies fever, chills, CP, plapitations. Reports improved constipation Vital Signs - Most Recent Temp Pulse Resp BP Pulse Ox 98.8 F 125 H 18 123/68 90 L 10/24/20 08:00 10/24/20 10:04 10/24/20 08:00 10/24/20 08:00 10/24/20 10:04 PE Gen: Well-appearing 65 yo M, lying in bed with wound vac in place Resp: CTAB, no wheezes CV: RRR, no murmurs Ext: Wound vac in place. Abnormal Lab Results 10/23/20 10/24/20 10/24/20 20:34 05:32 05:32 WBC 11.2 H RBC 3.82 L Hgb 11.8 L Hct 37.3 L MCV 97.5 MCH 30.9 MCHC 31.7 L RDW 14.2 Plt Count 267 MPV 7.8 Neutrophils % 71.6 Lymphocytes % 12.7 L Monocytes % 6.3 Eosinophils % 7.8 Basophils % 1.6 H Neutrophils # 8.0 H Lymphocytes # 1.4 Monocytes # 0.7 H Eosinophils # 0.9 H Basophils # 0.2 Sodium 137 Potassium 4.5 Chloride 103 Carbon Dioxide 25 Anion Gap 14 BUN 21 Creatinine 0.77 Estimated GFR (MDRD) Greater than 90 Glucose 112 POC Glucose 143 H Calcium 8.8 Total Bilirubin 0.3 AST 48 H ALT 70 H Alkaline Phosphatase 347 H Serum Total Protein 6.8 Albumin 3.0 L Globulin 3.8 H Albumin/Globulin Ratio 0.8 L 10/24/20 10/24/20 10/24/20 06:12 11:28 17:18 WBC RBC Hgb Hct MCV MCH MCHC RDW Plt Count MPV Neutrophils % Lymphocytes % Monocytes % Eosinophils % Basophils % Neutrophils # Lymphocytes # Monocytes # Eosinophils # Basophils # Sodium Potassium Chloride Carbon Dioxide Anion Gap BUN Creatinine Estimated GFR (MDRD) Glucose POC Glucose 102 121 H 139 H Calcium Total Bilirubin AST ALT Alkaline Phosphatase Serum Total Protein Albumin Globulin Albumin/Globulin Ratio Accuchecks 10/24/20 10/24/20 10/24/20 17:18 11:28 06:12 POC Glucose 139 H 121 H 102 10/23/20 20:34 POC Glucose 143 H Assessment: 1. weakness s/p COVID infection 2. weakness req Pt/OT 3. Type II Diabetes 4. Hypertension 5. s/p hypoxemic resp failure 6. Anorexia req PEG tube, improving Plan: 1. Continue PT, OT services 2. qShift flushes for PEG 3. Continue ducolax suppository PRN 4. continue antihypertensives 5. Continue PEG Feeds PRN 6. Continue Zoloft 7. continue Tramadol 8. DVT and stress ulcer prophy
[2020-10-24] MEDS: Cholecalciferol 1,000 UNITS (25 MCG) TAB PO SCH (21:30)
[2020-10-25] MEDS: Ventolin HFA Inhaler 60 PUFF INHALER INH SCH ×4 (06:01→18:08)
[2020-10-25] MEDS: Budesonide 0.5 MG/2 ML NEB NEB SCH ×2 (06:03→17:52)
[2020-10-25] MEDS: Arformoterol 15 MCG/2 ML NEB NEB SCH ×2 (06:07→17:52)
[2020-10-25] MEDS: Cyanocobalamin (Vitamin B-12) 1,000 MCG TAB PO SCH (09:12)
[2020-10-25] MEDS: Ascorbic Acid 500 mg Chewable Tablet PO SCH (09:12)
[2020-10-25] MEDS: Zinc Sulfate 220 MG CAP PO SCH (09:12)
[2020-10-25] MEDS: Apixaban 2.5 MG TAB PO SCH ×2 (09:12→20:31)
[2020-10-25] MEDS: Saccharomyces boulardii 250 MG CAP PO SCH (09:12)
[2020-10-25] MEDS: Folic Acid 1 MG TAB PO SCH (09:13)
[2020-10-25] MEDS: traMADol HCl 50 MG TAB PO PRN (12:42)
[2020-10-25] MEDS: Cholecalciferol 1,000 UNITS (25 MCG) TAB PO SCH (20:31)
[2020-10-26] MEDS: Arformoterol 15 MCG/2 ML NEB NEB SCH ×2 (05:16→18:15)
[2020-10-26] MEDS: Budesonide 0.5 MG/2 ML NEB NEB SCH ×2 (05:16→18:16)
[2020-10-26] MEDS: Ventolin HFA Inhaler 60 PUFF INHALER INH SCH ×4 (05:40→18:15)
[2020-10-26] MEDS: Apixaban 2.5 MG TAB PO SCH ×2 (08:05→21:07)
[2020-10-26] MEDS: Zinc Sulfate 220 MG CAP PO SCH (08:05)
[2020-10-26] MEDS: Saccharomyces boulardii 250 MG CAP PO SCH (08:05)
[2020-10-26] MEDS: Cyanocobalamin (Vitamin B-12) 1,000 MCG TAB PO SCH (08:06)
[2020-10-26] MEDS: Ascorbic Acid 500 mg Chewable Tablet PO SCH (08:06)
[2020-10-26] MEDS: Folic Acid 1 MG TAB PO SCH (08:06)
[2020-10-26] MEDS: traMADol HCl 50 MG TAB PO PRN (12:07)
--- NOTE | 2020-10-26 14:31 | PRG ---
DATE OF SERVICE: 10/26/2020 SUBJECTIVE: The patient is a well-appearing 65-year-old male, lying in bed, in no acute distress. The patient is improving overall in terms of mood and in terms of working on physical therapy. The patient continues to progress well with physical therapy. He did complain that his PEG tube seemed to be tight, and we will get GI to look into this. REVIEW OF SYSTEMS: Denies any fever, chills, cough, congestion, nausea, or vomiting. He does have intermittent complaints of constipation, but none today, and complains of generalized weakness. OBJECTIVE: VITAL SIGNS: Temperature 96.3 to 97, pulse 84 to 89, respirations 18, O2 sats 93% to 95% on room air, and blood pressure range 119/57 to 156/75. GENERAL: A well-appearing 65-year-old male, lying in bed, in no acute distress. Wound VAC in place. RESPIRATIONS: Clear to auscultation bilaterally. No wheezes or rhonchi. CARDIOVASCULAR: Regular rate and rhythm. No murmurs, gallops, or rubs. ABDOMEN: Soft. Nontender to palpation. Bowel sounds positive in all 4 quadrants. PEG tube in place, clean, dry, and intact. EXTREMITIES: Wound VAC in place, clean, dry, and intact. LABORATORY FINDINGS: CBGs 100 to 123. ASSESSMENT: 1. Weakness, requiring PT and OT Services, status post COVID infection. 2. Type 2 diabetes. 3. Hypertension. 4. Status post hypoxemic respiratory failure. 5. Anorexia, requiring PEG tube, improving. PLAN: 1. Continue PT and OT Services. 2. Q.shift flushes for PEG. 3. Continue Dulcolax suppository p.r.n. 4. Continue antihypertensives. 5. Continue PEG feeds p.r.n. 6. Continue Zoloft. 7. Continue tramadol. 8. DVT and stress ulcer prophylaxis. Job ID: [id number]
[2020-10-26] MEDS: Cholecalciferol 1,000 UNITS (25 MCG) TAB PO SCH (21:07)
[2020-10-27] MEDS: Arformoterol 15 MCG/2 ML NEB NEB SCH ×2 (05:35→19:06)
[2020-10-27] MEDS: Ventolin HFA Inhaler 60 PUFF INHALER INH SCH ×4 (05:36→19:06)
[2020-10-27] MEDS: Budesonide 0.5 MG/2 ML NEB NEB SCH ×2 (05:42→19:06)
[2020-10-27] MEDS: Saccharomyces boulardii 250 MG CAP PO SCH (09:54)
[2020-10-27] MEDS: Ascorbic Acid 500 mg Chewable Tablet PO SCH (09:54)
[2020-10-27] MEDS: Zinc Sulfate 220 MG CAP PO SCH (09:55)
[2020-10-27] MEDS: Apixaban 2.5 MG TAB PO SCH ×2 (09:55→21:06)
[2020-10-27] MEDS: Cyanocobalamin (Vitamin B-12) 1,000 MCG TAB PO SCH (09:55)
[2020-10-27] MEDS: Folic Acid 1 MG TAB PO SCH (09:55)
[2020-10-27] MEDS: Acetaminophen 325 MG TAB PO PRN (09:58)
[2020-10-27] MEDS: traMADol HCl 50 MG TAB PO PRN (09:58)
[2020-10-27] MEDS: Cholecalciferol 1,000 UNITS (25 MCG) TAB PO SCH (21:06)
[2020-10-28 05:34] LABS: Hemoglobin 11.8 g/dL (14.0-18.0); Platelet Count 297 thou/uL (130-400)
[2020-10-28] MEDS: Arformoterol 15 MCG/2 ML NEB NEB SCH ×2 (05:45→17:42)
[2020-10-28] MEDS: Ventolin HFA Inhaler 60 PUFF INHALER INH SCH ×4 (05:46→17:41)
[2020-10-28] MEDS: Budesonide 0.5 MG/2 ML NEB NEB SCH ×2 (05:51→17:42)
[2020-10-28] MEDS: Ascorbic Acid 500 mg Chewable Tablet PO SCH (08:35)
[2020-10-28] MEDS: Apixaban 2.5 MG TAB PO SCH ×2 (08:35→20:20)
[2020-10-28] MEDS: Saccharomyces boulardii 250 MG CAP PO SCH (08:36)
[2020-10-28] MEDS: Cyanocobalamin (Vitamin B-12) 1,000 MCG TAB PO SCH (08:36)
[2020-10-28] MEDS: Folic Acid 1 MG TAB PO SCH (08:36)
[2020-10-28] MEDS: Zinc Sulfate 220 MG CAP PO SCH (08:39)
[2020-10-28] MEDS: Cholecalciferol 1,000 UNITS (25 MCG) TAB PO SCH (20:21)
[2020-10-29] MEDS: Arformoterol 15 MCG/2 ML NEB NEB SCH ×2 (05:55→18:11)
[2020-10-29] MEDS: Budesonide 0.5 MG/2 ML NEB NEB SCH ×2 (05:57→18:11)
[2020-10-29] MEDS: Ventolin HFA Inhaler 60 PUFF INHALER INH SCH ×4 (05:59→18:10)
[2020-10-29] MEDS: Ascorbic Acid 500 mg Chewable Tablet PO SCH (08:45)
[2020-10-29] MEDS: Folic Acid 1 MG TAB PO SCH (08:45)
[2020-10-29] MEDS: Apixaban 2.5 MG TAB PO SCH ×2 (08:45→19:55)
[2020-10-29] MEDS: Cyanocobalamin (Vitamin B-12) 1,000 MCG TAB PO SCH (08:45)
[2020-10-29] MEDS: Saccharomyces boulardii 250 MG CAP PO SCH (08:46)
[2020-10-29] MEDS: Zinc Sulfate 220 MG CAP PO SCH (08:46)
[2020-10-29] MEDS: Cholecalciferol 1,000 UNITS (25 MCG) TAB PO SCH (19:55)
[2020-10-30] MEDS: Budesonide 0.5 MG/2 ML NEB NEB SCH (06:30)
[2020-10-30] MEDS: Arformoterol 15 MCG/2 ML NEB NEB SCH (06:30)
[2020-10-30] MEDS: Ventolin HFA Inhaler 60 PUFF INHALER INH SCH ×3 (06:30→18:00)
[2020-10-30] MEDS: Apixaban 2.5 MG TAB PO SCH ×2 (08:38→20:30)
[2020-10-30] MEDS: Cyanocobalamin (Vitamin B-12) 1,000 MCG TAB PO SCH (08:39)
[2020-10-30] MEDS: Ascorbic Acid 500 mg Chewable Tablet PO SCH (08:39)
[2020-10-30] MEDS: Folic Acid 1 MG TAB PO SCH (08:40)
[2020-10-30] MEDS: Saccharomyces boulardii 250 MG CAP PO SCH (08:41)
[2020-10-30] MEDS: Zinc Sulfate 220 MG CAP PO SCH (08:43)
[2020-10-30] MEDS: Cholecalciferol 1,000 UNITS (25 MCG) TAB PO SCH (20:30)
[2020-10-31] MEDS: Budesonide 0.5 MG/2 ML NEB NEB SCH ×3 (06:23→18:07)
[2020-10-31] MEDS: Ventolin HFA Inhaler 60 PUFF INHALER INH SCH ×5 (06:24→18:07)
[2020-10-31] MEDS: Arformoterol 15 MCG/2 ML NEB NEB SCH ×3 (06:24→18:07)
[2020-10-31] MEDS: Zinc Sulfate 220 MG CAP PO SCH (08:34)
[2020-10-31] MEDS: Folic Acid 1 MG TAB PO SCH (08:35)
[2020-10-31] MEDS: Cyanocobalamin (Vitamin B-12) 1,000 MCG TAB PO SCH (08:35)
[2020-10-31] MEDS: Ascorbic Acid 500 mg Chewable Tablet PO SCH (08:35)
[2020-10-31] MEDS: Saccharomyces boulardii 250 MG CAP PO SCH (08:36)
[2020-10-31] MEDS: Apixaban 2.5 MG TAB PO SCH ×2 (08:36→20:53)
[2020-10-31] MEDS: Polyethylene Glycol 3350 17 GM Packet PO PRN (10:41)
[2020-10-31] MEDS: Milk Of Magnesia 30 ML UDCUP PO PRN ×2 (15:04→18:07)
[2020-10-31] MEDS: Cholecalciferol 1,000 UNITS (25 MCG) TAB PO SCH (20:53)
[2020-11-01] MEDS: Budesonide 0.5 MG/2 ML NEB NEB SCH ×2 (06:19→17:44)
[2020-11-01] MEDS: Arformoterol 15 MCG/2 ML NEB NEB SCH ×2 (06:20→17:43)
[2020-11-01] MEDS: Ventolin HFA Inhaler 60 PUFF INHALER INH SCH ×4 (06:21→17:43)
[2020-11-01] MEDS: Bisacodyl 10 MG SUPP PR PRN (08:36)
[2020-11-01] MEDS: Milk Of Magnesia 30 ML UDCUP PO PRN (08:36)
[2020-11-01] MEDS: Apixaban 2.5 MG TAB PO SCH ×2 (08:37→20:56)
[2020-11-01] MEDS: Ascorbic Acid 500 mg Chewable Tablet PO SCH (08:37)
[2020-11-01] MEDS: Zinc Sulfate 220 MG CAP PO SCH (08:38)
[2020-11-01] MEDS: Folic Acid 1 MG TAB PO SCH (08:38)
[2020-11-01] MEDS: Cyanocobalamin (Vitamin B-12) 1,000 MCG TAB PO SCH (08:38)
[2020-11-01] MEDS: Saccharomyces boulardii 250 MG CAP PO SCH (08:38)
[2020-11-01] MEDS: Acetaminophen 325 MG TAB PO PRN (08:50)
[2020-11-01] MEDS: traMADol HCl 50 MG TAB PO PRN (08:52)
--- NOTE | 2020-11-01 19:22 | PRG ---
DATE OF SERVICE: 11/01/2020 SUBJECTIVE: The patient lying in bed, states he could not do therapy today because of constipation and rectal pain. However, nurses state he had several large bowel movements and just passed large hemorrhoids. OBJECTIVE: VITAL SIGNS: Temperature is 98, pulse 86, respirations 16, O2 sats 96% on room air, blood pressure is 136/78. LUNGS: Clear. CARDIAC: Regular rhythm. ABDOMEN: Soft and nontender. PEG tube in place. SKIN/EXTREMITIES: Display no edema, clubbing, or cyanosis. ASSESSMENT: 1. Severe deconditioning secondary to COVID. 2. Malnutrition secondary to anorexia, improving, percutaneous endoscopic gastrostomy tube. 3. Persistent rectal pain and hemorrhoids with minimal constipation. 4. Type 2 diabetes, controlled to goal. 5. Hypertension, controlled to goal. PLAN: 1. Continue PT, OT. 2. Continue to monitor for constipation. 3. Continue stool softeners. 4. Start Anusol HC rectal cream for hemorrhoids. 5. Continue Accu-Cheks to monitor and titrate, and control diabetes. Job ID: [id number]
[2020-11-01] MEDS: Cholecalciferol 1,000 UNITS (25 MCG) TAB PO SCH (20:56)
[2020-11-01] MEDS: Hydrocortisone 2.5% Cream 30 GM TUBE TOP SCH (21:17)
[2020-11-02] MEDS: Budesonide 0.5 MG/2 ML NEB NEB SCH ×2 (05:56→17:58)
[2020-11-02] MEDS: Arformoterol 15 MCG/2 ML NEB NEB SCH ×2 (05:56→17:58)
[2020-11-02] MEDS: Ventolin HFA Inhaler 60 PUFF INHALER INH SCH ×4 (06:34→17:58)
--- NOTE | 2020-11-02 06:59 | PRG ---
DATE OF SERVICE: 10/31/2020 SUBJECTIVE: The patient is a 65-year-old male patient of Dr. Polanco, who is status post COVID infection and has been in PT/OT for significant weakness. He has been cooperating fairly well and appears to be improving. He has been nutrition from his PEG tube and appears to be getting stronger. His vital signs are stable with O2 saturation remaining on room air stable. OBJECTIVE: Shows, VITAL SIGNS: Temperature is 97.8, pulse 93, respirations 16, O2 sats 96% on room air, and blood pressure 136/78. LUNGS: Clear. CARDIAC: Shows regular rhythm. ABDOMEN: Soft and nontender with no masses or organomegaly. PEG tube is in place. The patient does have significant hemorrhoids and is complaining of constipation. SKIN/EXTREMITIES: Display no edema, clubbing, or cyanosis. ASSESSMENT: 1. Post COVID, critical deconditioning, improving slowly with therapy. 2. Hypoxic respiratory failure, resolved. 3. Dysphagia, treated with PEG tube. 4. Constipation, hemorrhoids, being monitored by nurses. 5. Type 2 diabetes, controlled to goal. PLAN: 1. Continue PT/OT. 2. Continue Accu-Cheks to monitor and titrate and control diabetes. 3. Review labs and therapy notes. 4. Continue to monitor for increased nutritional status. Job ID: [id number]
[2020-11-02] MEDS: Ascorbic Acid 500 mg Chewable Tablet PO SCH (08:43)
[2020-11-02] MEDS: Cyanocobalamin (Vitamin B-12) 1,000 MCG TAB PO SCH (08:43)
[2020-11-02] MEDS: Folic Acid 1 MG TAB PO SCH (08:43)
[2020-11-02] MEDS: Apixaban 2.5 MG TAB PO SCH ×2 (08:43→20:51)
[2020-11-02] MEDS: Saccharomyces boulardii 250 MG CAP PO SCH (08:44)
[2020-11-02] MEDS: Polyethylene Glycol 3350 17 GM Packet PO PRN (08:44)
[2020-11-02] MEDS: Hydrocortisone 2.5% Cream 30 GM TUBE TOP SCH ×2 (08:44→20:51)
[2020-11-02] MEDS: Zinc Sulfate 220 MG CAP PO SCH (08:44)
[2020-11-02] MEDS: Cholecalciferol 1,000 UNITS (25 MCG) TAB PO SCH (20:51)
[2020-11-03] MEDS: Ventolin HFA Inhaler 60 PUFF INHALER INH SCH ×4 (05:31→18:57)
[2020-11-03] MEDS: Arformoterol 15 MCG/2 ML NEB NEB SCH ×2 (05:32→17:31)
[2020-11-03] MEDS: Budesonide 0.5 MG/2 ML NEB NEB SCH ×2 (05:33→17:31)
[2020-11-03] MEDS: Folic Acid 1 MG TAB PO SCH (08:35)
[2020-11-03] MEDS: Saccharomyces boulardii 250 MG CAP PO SCH (08:35)
[2020-11-03] MEDS: Zinc Sulfate 220 MG CAP PO SCH (08:35)
[2020-11-03] MEDS: Cyanocobalamin (Vitamin B-12) 1,000 MCG TAB PO SCH (08:36)
[2020-11-03] MEDS: Ascorbic Acid 500 mg Chewable Tablet PO SCH (08:36)
[2020-11-03] MEDS: Apixaban 2.5 MG TAB PO SCH ×2 (08:36→20:52)
[2020-11-03] MEDS: Hydrocortisone 2.5% Cream 30 GM TUBE TOP SCH ×2 (08:37→20:53)
[2020-11-03] MEDS: HumaLOG 300 UNITS/3 ML VIAL SC PRN ×2 (13:08→17:30)
[2020-11-03] MEDS: Cholecalciferol 1,000 UNITS (25 MCG) TAB PO SCH (20:53)
[2020-11-04] MEDS: Ventolin HFA Inhaler 60 PUFF INHALER INH SCH ×4 (05:31→18:03)
[2020-11-04 05:33] LABS: #Basophils 0.2 thou/uL (0.0-0.2); #Eosinphils 0.4 thou/uL (0.0-0.7); #Lymphocytes 1.8 thou/uL (1.20-3.40); #Monocytes 0.7 thou/uL (0.11-0.59); #Neutrophils 9.4 thou/uL (1.40-6.50); %Basophils 1.8 % (0.0-1.0); %Eosinophils 3.5 % (0.0-10.0); %Lymphocytes 14.4 % (21.0-51.0); %Monocytes 5.6 % (0.0-10.0); %Neutrophils 74.7 % (42.0-75.0); Hemoglobin 12.8 g/dL (14.0-18.0); Mean Corpuscular HGB CONC 31.7 g/dL (32.0-36.0); Mean Corpuscular Hemoglobin 31.2 pg (27.0-31.0); Mean Corpuscular Volume 98.6 fL (78.0-98.0); Mean Platelet Volume 7.7 fL (7.4-10.4); Platelet Count 363 thou/uL (130-400); RBC Distribution Width 14.5 % (11.5-14.5); Red Blood Cell (RBC) Count 4.09 mill/uL (4.70-6.10); White Blood Cell (WBC) Count 12.6 thou/uL (4.8-10.8)
[2020-11-04] MEDS: Arformoterol 15 MCG/2 ML NEB NEB SCH ×2 (05:34→18:04)
[2020-11-04] MEDS: Budesonide 0.5 MG/2 ML NEB NEB SCH ×2 (05:43→18:04)
[2020-11-04 05:48] LABS: ALT (SGPT) 268 U/L (8-55); AST (SGOT) 160 U/L (5-34); Albumin 3.2 g/dL (3.4-4.8); Alkaline Phosphatase 1078 U/L (40-110); Anion Gap 14 mmol/L (10-20); BUN (Urea Nitrogen) 33 mg/dL (8.4-25.7); Calc. Creatinine Clearance 118 mL/min (70-130); Calcium 9.4 mg/dL (7.8-10.44); Carbon Dioxide 25 mmol/L (23-31); Chloride 101 mmol/L (98-107); Globulin 3.8 g/dL (2.4-3.5); Glucose 120 mg/dL (80-115); Potassium 3.9 mmol/L (3.5-5.1); Sodium 136 mmol/L (136-145)
[2020-11-04] MEDS: Saccharomyces boulardii 250 MG CAP PO SCH (08:16)
[2020-11-04] MEDS: Cyanocobalamin (Vitamin B-12) 1,000 MCG TAB PO SCH (08:17)
[2020-11-04] MEDS: Apixaban 2.5 MG TAB PO SCH ×2 (08:17→20:38)
[2020-11-04] MEDS: Folic Acid 1 MG TAB PO SCH (08:17)
[2020-11-04] MEDS: Zinc Sulfate 220 MG CAP PO SCH (08:17)
[2020-11-04] MEDS: Ascorbic Acid 500 mg Chewable Tablet PO SCH (08:17)
[2020-11-04] MEDS: Hydrocortisone 2.5% Cream 30 GM TUBE TOP SCH ×2 (08:20→20:38)
[2020-11-04] MEDS ORDERED: Meclizine HCl 25 MG TAB ONE (11:59)
[2020-11-04] MEDS: Meclizine HCl 25 MG TAB PO PRN (12:02)
--- NOTE | 2020-11-04 13:27 | PRG ---
DATE OF SERVICE: 11/04/2020 SUBJECTIVE: Mr. Golden is up in bed and denies any concerns. He is hoping to go home soon. He is happy with his progress. His spouse is in the room and is going to talk to Case Management about discharge planning during his weekly case conference on Friday. OBJECTIVE: VITAL SIGNS: He is afebrile, heart rate 81, respirations 18, oxygen saturation 95% on room air, blood pressure 123/69. CARDIOVASCULAR SYSTEM: S1-S2 plus. RESPIRATORY SYSTEM: Normal vesicular breath sounds. ABDOMEN: Soft and nontender. Bowel sounds heard in all 4 quadrants. EXTREMITIES: Without cyanosis or clubbing. CENTRAL NERVOUS SYSTEM: Improving deconditioning. LABORATORY VALUES: White count is 12.6, H and H are 12.8 and 40.3. Sodium 136, potassium 3.9, BUN and creatinine are 33 and 0.8. Blood sugars are 155, 153, 120, 119, and 128. IMPRESSION: 1. Improving critical illness myopathy and neuropathy from recent COVID-19 infection. 2. Resolved acute hypoxemic respiratory failure. 3. Diabetes mellitus type 2. Family would like him tapered off his sliding scale. With his creatinine being back to normal, I am going to start him on metformin 500 mg daily. His AST and ALT are continuing to be elevated. PLAN: 1. Continue current medications. 2. 1800 calorie heart healthy ADA diet. 3. Continue therapy. 4. Wound care. 5. Monitor LFTs. 6. We will talk to the patient and tomorrow and see if they are okay with trying oral medications for diabetes. DVT prophylaxis. The patient is on Eliquis. Continue to monitor respiratory status. Job ID: [id number]
[2020-11-04] MEDS: Cholecalciferol 1,000 UNITS (25 MCG) TAB PO SCH (20:38)
[2020-11-05] MEDS: Arformoterol 15 MCG/2 ML NEB NEB SCH ×2 (05:34→17:46)
[2020-11-05] MEDS: Budesonide 0.5 MG/2 ML NEB NEB SCH ×2 (05:35→17:47)
[2020-11-05] MEDS: Ventolin HFA Inhaler 60 PUFF INHALER INH SCH ×4 (05:35→18:18)
[2020-11-05] MEDS: Saccharomyces boulardii 250 MG CAP PO SCH (08:55)
[2020-11-05] MEDS: Cyanocobalamin (Vitamin B-12) 1,000 MCG TAB PO SCH (08:55)
[2020-11-05] MEDS: Zinc Sulfate 220 MG CAP PO SCH (08:55)
[2020-11-05] MEDS: Ascorbic Acid 500 mg Chewable Tablet PO SCH (08:55)
[2020-11-05] MEDS: Apixaban 2.5 MG TAB PO SCH ×2 (08:56→20:41)
[2020-11-05] MEDS: Folic Acid 1 MG TAB PO SCH (08:56)
[2020-11-05] MEDS: Hydrocortisone 2.5% Cream 30 GM TUBE TOP SCH ×2 (08:56→21:22)
[2020-11-05 09:01] VITALS: BMI 29.0
[2020-11-05] MEDS ORDERED: Meclizine HCl 25 MG TAB ONE (09:18)
[2020-11-05] MEDS: Meclizine HCl 25 MG TAB PO PRN (09:36)
--- NOTE | 2020-11-05 15:02 | PRG ---
DATE OF SERVICE: 11/05/2020 SUBJECTIVE: Mr. Golden is up in bed and denies any concerns. His spouse is in the room. They are hoping to go home next week. Discussed with Nursing. OBJECTIVE: VITAL SIGNS: He is afebrile, heart rate 89, respirations 18, oxygen saturation 98% on room air, blood pressure 136/71. CARDIOVASCULAR SYSTEM: S1-S2 plus. RESPIRATORY SYSTEM: Normal vesicular breath sounds. ABDOMEN: Soft and nontender. Bowel sounds heard in all quadrants. EXTREMITIES: Without cyanosis or clubbing. IMPRESSION: 1. Diabetes mellitus type 2. 2. Improving critical illness myopathy and neuropathy. 3. Resolved acute hypoxemic respiratory failure. 4. Persistently elevated LFTs. PLAN: 1. Continue current medications. 2. 1800-calorie heart healthy ADA. 3. Continue therapy. 4. Discharge planning. 5. Dr. Polanco will resume care at 9 p.m. [facility]. Job ID: [id number]
[2020-11-05] MEDS: Acetaminophen 325 MG TAB PO PRN (20:38)
[2020-11-05] MEDS: traMADol HCl 50 MG TAB PO PRN (20:40)
[2020-11-05] MEDS: Cholecalciferol 1,000 UNITS (25 MCG) TAB PO SCH (20:41)
[2020-11-06] MEDS: Arformoterol 15 MCG/2 ML NEB NEB SCH ×2 (06:05→18:44)
[2020-11-06] MEDS: Budesonide 0.5 MG/2 ML NEB NEB SCH ×2 (06:06→18:44)
[2020-11-06] MEDS: Ventolin HFA Inhaler 60 PUFF INHALER INH SCH ×4 (06:08→18:44)
[2020-11-06] MEDS: Ascorbic Acid 500 mg Chewable Tablet PO SCH (08:35)
[2020-11-06] MEDS: Cyanocobalamin (Vitamin B-12) 1,000 MCG TAB PO SCH (08:35)
[2020-11-06] MEDS: Folic Acid 1 MG TAB PO SCH (08:35)
[2020-11-06] MEDS: Apixaban 2.5 MG TAB PO SCH ×2 (08:35→21:16)
[2020-11-06] MEDS: Hydrocortisone 2.5% Cream 30 GM TUBE TOP SCH ×2 (08:36→21:19)
[2020-11-06] MEDS: Zinc Sulfate 220 MG CAP PO SCH (08:37)
[2020-11-06] MEDS: Saccharomyces boulardii 250 MG CAP PO SCH (08:37)
[2020-11-06] MEDS: Cholecalciferol 1,000 UNITS (25 MCG) TAB PO SCH (21:16)
[2020-11-07] MEDS: Arformoterol 15 MCG/2 ML NEB NEB SCH (05:35)
[2020-11-07] MEDS: Ventolin HFA Inhaler 60 PUFF INHALER INH SCH ×2 (05:36→11:57)
[2020-11-07] MEDS: Budesonide 0.5 MG/2 ML NEB NEB SCH (05:36)
[2020-11-07] MEDS: Hydrocortisone 2.5% Cream 30 GM TUBE TOP SCH ×2 (08:15→19:56)
[2020-11-07] MEDS: Apixaban 2.5 MG TAB PO SCH ×2 (08:15→19:59)
[2020-11-07] MEDS: Ascorbic Acid 500 mg Chewable Tablet PO SCH (08:15)
[2020-11-07] MEDS: Folic Acid 1 MG TAB PO SCH (08:15)
[2020-11-07] MEDS: Cyanocobalamin (Vitamin B-12) 1,000 MCG TAB PO SCH (08:15)
[2020-11-07] MEDS: Saccharomyces boulardii 250 MG CAP PO SCH (08:16)
[2020-11-07] MEDS: Meclizine HCl 25 MG TAB PO PRN (08:16)
[2020-11-07] MEDS: Zinc Sulfate 220 MG CAP PO SCH (08:16)
[2020-11-07] MEDS: Cholecalciferol 1,000 UNITS (25 MCG) TAB PO SCH (19:59)
[2020-11-08] MEDS: Cyanocobalamin (Vitamin B-12) 1,000 MCG TAB PO SCH (08:56)
[2020-11-08] MEDS: Saccharomyces boulardii 250 MG CAP PO SCH (08:56)
[2020-11-08] MEDS: Folic Acid 1 MG TAB PO SCH (08:56)
[2020-11-08] MEDS: Zinc Sulfate 220 MG CAP PO SCH (08:56)
[2020-11-08] MEDS: Ascorbic Acid 500 mg Chewable Tablet PO SCH (08:56)
[2020-11-08] MEDS: Apixaban 2.5 MG TAB PO SCH ×2 (08:56→20:35)
[2020-11-08] MEDS: Hydrocortisone 2.5% Cream 30 GM TUBE TOP SCH ×2 (08:57→20:35)
[2020-11-08] MEDS: HumaLOG 300 UNITS/3 ML VIAL SC PRN (14:11)
[2020-11-08] MEDS: Cholecalciferol 1,000 UNITS (25 MCG) TAB PO SCH (20:35)
[2020-11-09] MEDS: Apixaban 2.5 MG TAB PO SCH ×2 (08:31→20:49)
[2020-11-09] MEDS: Cyanocobalamin (Vitamin B-12) 1,000 MCG TAB PO SCH (08:31)
[2020-11-09] MEDS: Zinc Sulfate 220 MG CAP PO SCH (08:31)
[2020-11-09] MEDS: Folic Acid 1 MG TAB PO SCH (08:31)
[2020-11-09] MEDS: Saccharomyces boulardii 250 MG CAP PO SCH (08:31)
[2020-11-09] MEDS: Ascorbic Acid 500 mg Chewable Tablet PO SCH (08:31)
[2020-11-09] MEDS: Hydrocortisone 2.5% Cream 30 GM TUBE TOP SCH ×2 (08:32→20:49)
[2020-11-09] MEDS: Meclizine HCl 25 MG TAB PO PRN ×2 (11:07→12:21)
[2020-11-09] MEDS: HumaLOG 300 UNITS/3 ML VIAL SC PRN (12:21)
--- NOTE | 2020-11-09 14:52 | PRG ---
DATE OF SERVICE: 11/09/2020 SUBJECTIVE: This is a well-appearing 65-year-old male, who is doing well and improving with physical therapy. The patient is here status post COVID infection with critical illness myopathy and neuropathy. REVIEW OF SYSTEMS: Denies any fever, chills, chest pain, palpitations, nausea, vomiting, diarrhea. Does complain of intermittent constipation, which improves with laxatives. OBJECTIVE: VITAL SIGNS: Temperature 96.8, pulse 96 to 83, respirations 18, O2 sats 96% on room air, blood pressure 143/70 to 147/66. GENERAL: Well-appearing 65-year-old male, lying in bed, in no acute distress. Wound VAC in place with no complications. RESPIRATIONS: Clear to auscultation bilaterally. HEART: Regular rate and rhythm. No murmurs, gallops, or rubs. ABDOMEN: Soft, nontender to palpation. Bowel sounds positive in all 4 quadrants. EXTREMITIES: Improving strength in all extremities, but still with weakness appreciable on exam. ASSESSMENT: 1. Resolving critical illness myopathy, status post COVID infection. 2. Diabetes mellitus, type 2. 3. Sacral decubitus, requiring the wound VAC, which we have been following for the patient. PLAN: 1. Continue DM management at this point. CBGs have been well controlled. 2. Continue PT, OT services. 3. Continue to monitor blood pressure and adjust medications as needed. 4. Continue meclizine p.r.n. for patient's dizziness. 5. Discharge planning, discharge the patient on Friday, tomorrow and have the patient to follow up with me in clinic. Job ID: [id number]
--- NOTE | 2020-11-09 15:05 | PRG ---
DATE OF SERVICE: 11/07/2020 SUBJECTIVE: This is a pleasant 65-year-old male, who is here status post COVID, requiring PT and OT services. The patient overall is doing well and participating very well in that physical therapy. Plan at this time is to have the patient discharged on Friday and have him follow up with me in clinic to establish care with me. Overall, diabetes is doing well as well as his blood pressure. REVIEW OF SYSTEMS: Denies any fever, chills, cough, congestion, palpitations, chest pain, nausea, vomiting, or diarrhea. Does report intermittent constipation, which is helped with laxatives. OBJECTIVE: VITAL SIGNS: Temperature 98.7, pulse 92, respirations 20, O2 sats 97% on room air, blood pressure ranging from 113/79 to 133/70. GENERAL: Well-appearing 65-year-old male, lying in bed, in no acute distress with a wound VAC in place on the sacrum. HEART: Regular rate and rhythm. No murmurs, gallops, or rubs. RESPIRATIONS: Clear to auscultation bilaterally. ABDOMEN: Soft, nontender to palpation. Bowel sounds positive in all 4 quadrants. EXTREMITIES: Improving strength in all extremities. The patient is working well with physical therapy. Wound VAC is in place with no complications. LABORATORY DATA: CBGs are ranging from 107 to 161. ASSESSMENT: 1. Improving critical illness myopathy and neuropathy, status post COVID infection. 2. Diabetes mellitus type 2. 3. Resolved acute hypoxemic respiratory failure. PLAN: 1. Continue current medications. 2. CBGs are being well controlled. 3. Continue PT and OT services. 4. Discharge planning: We will discharge on Friday. Follow up with me in clinic next week. Job ID: [id number]
[2020-11-09] MEDS: Cholecalciferol 1,000 UNITS (25 MCG) TAB PO SCH (20:49)
[2020-11-10] MEDS ORDERED: Insulin Glargine 5 UNITS in Pre-Filled Syringe 1 EACH SC SCH (09:00)
[2020-11-10] MEDS ORDERED: Lantus 1000 UNITS/10 ML VIAL SC SCH (09:00)
[2020-11-10] MEDS: Saccharomyces boulardii 250 MG CAP PO SCH (09:49)
[2020-11-10] MEDS: Cyanocobalamin (Vitamin B-12) 1,000 MCG TAB PO SCH (09:49)
[2020-11-10] MEDS: Folic Acid 1 MG TAB PO SCH (09:49)
[2020-11-10] MEDS: Ascorbic Acid 500 mg Chewable Tablet PO SCH (09:49)
[2020-11-10] MEDS: Zinc Sulfate 220 MG CAP PO SCH (09:49)
[2020-11-10] MEDS: Hydrocortisone 2.5% Cream 30 GM TUBE TOP SCH (09:50)
[2020-11-10] MEDS: Apixaban 2.5 MG TAB PO SCH (09:50)
[2020-11-10] MEDS: Meclizine HCl 25 MG TAB PO PRN (09:59)
[2020-11-10 15:52] VITALS: BP 138/77; TEMP 97.3
== END 2020-11-10 17:20 | disposition home or self-care (01) | DRG 947 ==
LOC: NAV ACUTE 10:02
PROVIDERS: ADMIT Family Medicine; ATTEND Family Medicine
DX: R53.1 Weakness (principal); E43 Unspecified severe protein-calorie malnutrition; J96.01 Acute respiratory failure with hypoxia; N39.0 Urinary tract infection, site not specified; R53.81 Other malaise; K64.9 Unspecified hemorrhoids; K59.00 Constipation, unspecified; I73.9 Peripheral vascular disease, unspecified; R63.0 Anorexia; E11.9 Type 2 diabetes mellitus without complications; Z86.16 Personal history of COVID-19; Z98.890 Other specified postprocedural states; Z93.1 Gastrostomy status; Z79.899 Other long term (current) drug therapy; Z79.51 Long term (current) use of inhaled steroids; Z88.0 Allergy status to penicillin; Z91.018 Allergy to other foods; Z68.29 Body mass index [BMI] 29.0-29.9, adult; R79.89 Other specified abnormal findings of blood chemistry; G62.9 Polyneuropathy, unspecified; G72.9 Myopathy, unspecified
CPT/HCPCS: 36416; 74018; 80048; 80053; 85014; 85018; 85025; 85049; 87070; 87077; 87186; 87205; 94640; 94664; 97602; J1815; J7626; J8540